=== PATIENT | female | born 1930 | race Caucasian/White ===

== ENCOUNTER 2019-01-22 06:33 | Day surgery (SDC) | payer MEDICARE, OTHER ==
[2019-01-22] MEDS ORDERED: LIDOCAINE 2% (SDV) 5 ML INJ (07:00)
[2019-01-22] MEDS ORDERED: PROPOFOL 20 ML (08:09)
[2019-01-22] MEDS ORDERED: FENTAnyl 50 MCG/ML VIAL IV ×2 (08:30)
== END 2019-01-22 15:00 | disposition home or self-care (01) ==
LOC: GIL 06:33
DX: K92.1 Melena (principal); D12.3 Benign neoplasm of transverse colon; K64.8 Other hemorrhoids; K57.30 Diverticulosis of large intestine without perforation or abscess without bleeding; E11.9 Type 2 diabetes mellitus without complications; E78.5 Hyperlipidemia, unspecified; E03.9 Hypothyroidism, unspecified; I10 Essential (primary) hypertension
CPT/HCPCS: 45385; 82962; 88305